=== PATIENT | male | born 1970 | race Caucasian/White ===

== ENCOUNTER → 2024-09-29 | Outpatient (CLI) | payer OTHER ==
[2024-09-29 09:50] LABS: BASOPHIL % 0.9 % (0.2-1.2); EOSINOPHIL # 0.2 10^3/uL (0.0-0.2); EOSINOPHIL % 5.4 % (0.0-5.0); HEMATOCRIT(ML) 47.2 % (37.0-53.0); HEMOGLOBIN 15.7 g/dL (13.9-16.3); LYMPHOCYTES % 35.9 % (24.0-44.0); MEAN CORP HGB CONCENTRATION 33.3 g/dL (33-36.5); MEAN CORP VOLUME 90.2 fL (78-100); MONOCYTES # 0.4 10^3/uL (0.3-0.8); MONOCYTES % 8.1 % (5.0-12.0); NEUTROPHIL # 2.2 10^3/uL (1.8-7.7); NEUTROPHILS % 49.7 % (41.0-85.0); PLATELET COUNT 243 10^3/uL (150-400); RED BLOOD CELL 5.23 10^6/uL (4.50-5.90); RED CELL DISTRIBUTION WIDTH 12.6 % (11.5-14.5); WHITE BLOOD CELL 4.5 10^3/uL (4.5-11.0)
[2024-09-29 10:19] LABS: +ADD MANUAL DIFF(NO CHRG) NO
[2024-09-29 10:20] LABS: ALBUMIN/GLOBULIN RATIO 1.111; ANION GAP 12.9; BUN/CREATININE RATIO 18.55 (10.0-20.0); CALCIUM 9.5 mg/dL (8.4-10.5); CARBON DIOXIDE 27.1 mmol/L (20.0-32); CREATININE SERUM 0.97 mg/dL (0.59-1.40); LDL/HDL RATIO 2.5
== END | disposition home or self-care (01) ==
LOC: LAB 09:22
PROVIDERS: ATTEND Internal Medicine
DX: Z12.5 Encounter for screening for malignant neoplasm of prostate (principal)
CPT/HCPCS: 36415; 80053; 80061; 84153; 84403; 85025